=== PATIENT | female | born 1985 | race Caucasian/White ===

== ENCOUNTER → 2020-08-13 | Outpatient (CLI) | payer BC | END | disposition home or self-care (01) | LOC: LABWHC1 13:24 | PROVIDERS: ATTEND Nurse Practitioner Family | DX: Z03.818 Encounter for observation for suspected exposure to other biological agents ruled out (principal) | CPT/HCPCS: U0003; C9803 ==

== ENCOUNTER 2020-08-14 11:30 | Emergency (ER) | payer BC ==
[2020-08-14 11:38] VITALS: RESP 16; TEMP 97.1
[2020-08-14] MEDS ORDERED: PANTOPRAZOLE 40 MG/10 ML VIAL IVP STA (11:42)
[2020-08-14] MEDS ORDERED: ONDANSETRON 4 MG/2 ML VIAL IVP STA (11:42)
[2020-08-14] MEDS ORDERED: SODIUM CHLORIDE 0.9% 1,000 ML IV STA (11:42)
--- NOTE | 2020-08-14 11:59 | ED ---
Abdominal Pain HPI - General Chief Complaint: Abdominal Pain Stated Complaint: PAIN IN ABD Time Seen by Provider: 08/14/20 11:42 Source: patient Mode of arrival: ambulatory Limitations: no limitations - History of Present Illness Initial Comments: Patient is a 35-year-old female presenting to the emergency department with chief complaint of abdominal pain. Patient reports the pain started early this morning and woke her up out of her sleep. Patient reports the pain is in the right flank region and radiating across to the groin. Patient denies a history of kidney stones. She denies any urinary or vaginal complaints. Denies any alleviating aggravated factors. Denies taking medication to alleviate the symptoms. Denies hematuria, hematochezia or melena. She also complains of right upper quadrant abdominal pain that has been ongoing for 5-6 years but her primary care physician is not done anything about it. She does report. Radial pain and going on for several years as well. No nausea vomiting diarrhea. - Related Data Home Medications Medication Instructions Recorded Confirmed Escitalopram [Lexapro] 20 mg PO HS 08/14/20 08/14/20 Allergies Allergy/AdvReac Type Severity Reaction Status Date / Time No Known Allergies Allergy Verified 08/14/20 12:07 Review of Systems ROS Statement: Those systems with pertinent positive or pertinent negative responses have been documented in the HPI. ROS Other: All systems not noted in ROS Statement are negative. 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 History of Any Multi-Drug Resistant Organisms: None Reported Past Surgical History: Ablation Additional Past Surgical History / Comment(s): Heart ablation Past Psychological History: No Psychological Hx Reported Smoking Status: Current every day smoker Past Alcohol Use History: None Reported Past Drug Use History: None Reported General Exam Limitations: no limitations General appearance: alert, in no apparent distress, obese Head exam: Present: atraumatic, normocephalic, normal inspection Eye exam: Present: normal appearance, PERRL, EOMI Pupils: Present: normal accommodation ENT exam: Present: normal exam, normal oropharynx, mucous membranes moist, TM's normal bilaterally, normal external ear exam Neck exam: Present: normal inspection, full ROM. Absent: tenderness Respiratory exam: Present: normal lung sounds bilaterally. Absent: respiratory distress, wheezes Cardiovascular Exam: Present: regular rate, normal rhythm, normal heart sounds GI/Abdominal exam: Present: soft, tenderness (Right upper quadrant, right flank pain. Positive Galvan sign). Absent: distended, guarding, rebound, rigid Extremities exam: Present: normal inspection, full ROM, normal capillary refill. Absent: tenderness Back exam: Present: normal inspection, full ROM, CVA tenderness (R). Absent: tenderness, CVA tenderness (L) Neurological exam: Present: alert, oriented X3, normal gait Psychiatric exam: Present: normal affect, normal mood Skin exam: Present: warm, dry, intact, normal color Course Vital Signs 08/14/20 08/14/20 11:36 13:15 Temperature 97.1 F L Pulse Rate 61 62 Respiratory 16 16 Rate Blood Pressure 131/89 115/69 O2 Sat by Pulse 100 99 Oximetry Medical Decision Making - Medical Decision Making Patient is a 35-year-old male presenting to emergency Department with chief complaint of abdominal pain. The patient's biggest complaint is right flank pain that started this morning, sudden onset and sharp in nature. It is also colicky. Physical examination reveals right CVA tenderness. She also has right upper quadrant abdominal pain. CBC reveals mild leukocytosis. CMP is in a Ramon well. UA shows small amounts of blood and red blood cells. I suspect the patient has already passed a renal stone. Right upper quadrant ultrasound was obtained revealing gallstones without evidence of cholecystitis. No signs of hydronephrosis. I suspect this is a chronic issue for the patient. I will give her contact information for a general surgeon. Patient was advised about eating a low-fat diet. Strict return parameters were thoroughly discussed with patient was standing agreeable. Case discussed with physician. - Lab Data Result diagrams: 08/14/20 11:51 08/14/20 11:51 Lab Results 08/14/20 08/14/20 08/14/20 Range/Units 11:51 11:51 11:51 WBC 13.5 H (3.8-10.6) k/uL RBC 4.45 (3.80-5.40) m/uL Hgb 14.5 (11.4-16.0) gm/dL Hct 44.1 (34.0-46.0) % MCV 99.1 (80.0-100.0) fL MCH 32.5 (25.0-35.0) pg MCHC 32.8 (31.0-37.0) g/dL RDW 13.1 (11.5-15.5) % Plt Count 370 (150-450) k/uL Neutrophils % 84 % Lymphocytes % 12 % Monocytes % 2 % Eosinophils % 2 % Basophils % 0 % Neutrophils # 11.3 H (1.3-7.7) k/uL Lymphocytes # 1.6 (1.0-4.8) k/uL Monocytes # 0.3 (0-1.0) k/uL Eosinophils # 0.3 (0-0.7) k/uL Basophils # 0.1 (0-0.2) k/uL Sodium (137-145) mmol/L Potassium (3.5-5.1) mmol/L Chloride (98-107) mmol/L Carbon Dioxide (22-30) mmol/L Anion Gap mmol/L BUN (7-17) mg/dL Creatinine (0.52-1.04) mg/dL Est GFR (CKD-EPI)AfAm (>60 ml/min/1.73 sqM) Est GFR (CKD-EPI)NonAf (>60 ml/min/1.73 sqM) Glucose (74-99) mg/dL Calcium (8.4-10.2) mg/dL Total Bilirubin (0.2-1.3) mg/dL AST (14-36) U/L ALT (4-34) U/L Alkaline Phosphatase (38-126) U/L Total Protein (6.3-8.2) g/dL Albumin (3.5-5.0) g/dL Lipase (23-300) U/L Urine Color Yellow Urine Appearance Clear (Clear) Urine pH 8.0 (5.0-8.0) Ur Specific Crucible 1.026 (1.001-1.035) Urine Protein Trace H (Negative) Urine Glucose (UA) Negative (Negative) Urine Ketones Negative (Negative) Urine Blood Small H (Negative) Urine Nitrite Negative (Negative) Urine Bilirubin Negative (Negative) Urine Urobilinogen <2.0 (<2.0) mg/dL Ur Leukocyte Esterase Negative (Negative) Urine RBC 16 H (0-5) /hpf Urine WBC 1 (0-5) /hpf Urine Mucus Rare H (None) /hpf Urine HCG, Qual Not Detected (Not Detectd) 08/14/20 Range/Units 11:51 WBC (3.8-10.6) k/uL RBC (3.80-5.40) m/uL Hgb (11.4-16.0) gm/dL Hct (34.0-46.0) % MCV (80.0-100.0) fL MCH (25.0-35.0) pg MCHC (31.0-37.0) g/dL RDW (11.5-15.5) % Plt Count (150-450) k/uL Neutrophils % % Lymphocytes % % Monocytes % % Eosinophils % % Basophils % % Neutrophils # (1.3-7.7) k/uL Lymphocytes # (1.0-4.8) k/uL Monocytes # (0-1.0) k/uL Eosinophils # (0-0.7) k/uL Basophils # (0-0.2) k/uL Sodium 136 L (137-145) mmol/L Potassium 5.3 H (3.5-5.1) mmol/L Chloride 106 (98-107) mmol/L Carbon Dioxide 24 (22-30) mmol/L Anion Gap 6 mmol/L BUN 17 (7-17) mg/dL Creatinine 0.53 (0.52-1.04) mg/dL Est GFR (CKD-EPI)AfAm >90 (>60 ml/min/1.73 sqM) Est GFR (CKD-EPI)NonAf >90 (>60 ml/min/1.73 sqM) Glucose 124 H (74-99) mg/dL Calcium 9.3 (8.4-10.2) mg/dL Total Bilirubin 0.8 (0.2-1.3) mg/dL AST 29 (14-36) U/L ALT 15 (4-34) U/L Alkaline Phosphatase 52 (38-126) U/L Total Protein 7.8 (6.3-8.2) g/dL Albumin 4.4 (3.5-5.0) g/dL Lipase 52 (23-300) U/L Urine Color Urine Appearance (Clear) Urine pH (5.0-8.0) Ur Specific Crucible (1.001-1.035) Urine Protein (Negative) Urine Glucose (UA) (Negative) Urine Ketones (Negative) Urine Blood (Negative) Urine Nitrite (Negative) Urine Bilirubin (Negative) Urine Urobilinogen (<2.0) mg/dL Ur Leukocyte Esterase (Negative) Urine RBC (0-5) /hpf Urine WBC (0-5) /hpf Urine Mucus (None) /hpf Urine HCG, Qual (Not Detectd) Disposition Clinical Impression: Renal stone, Right flank pain, Gallstone Disposition: HOME SELF-CARE Condition: Stable Instructions (If sedation given, give patient instructions): Kidney Stones (ED), Cholecystitis (ED), Low Fat Diet (ED) Additional Instructions: Please follow up with a general surgeon. It a low-fat diet. Return to emergency department if symptoms worsen. Is patient prescribed a controlled substance at d/c from ED?: No Referrals: Mary León III, MD [Primary Care Provider] - 1-2 days Merrick Ortiz MD [Medical Doctor] - 1-2 days Time of Disposition: 14:03
[2020-08-14 12:01] LABS: Appearance,Urine Clear (Clear); Basophils # (A) 0.1 k/uL (0-0.2); Basophils % (A) 0 %; Bilirubin,Urine Negative (Negative); Blood,Urine Small (Negative); Color,Urine Yellow; Eosinophils # (A) 0.3 k/uL (0-0.7); Eosinophils % (A) 2 %; Glucose,Urine (UA) Negative (Negative); HCT 44.1 % (34.0-46.0); HGB 14.5 gm/dL (11.4-16.0); Ketones,Urine Negative (Negative); Leukocyte Esterase,Urine Negative (Negative); Lymphocytes # (A) 1.6 k/uL (1.0-4.8); Lymphocytes % (A) 12 %; MCH 32.5 pg (25.0-35.0); MCHC 32.8 g/dL (31.0-37.0); MCV 99.1 fL (80.0-100.0); Mean Platelet Volume 7.2; Monocytes # (A) 0.3 k/uL (0-1.0); Monocytes % (A) 2 %; Mucus,Urine Rare /hpf; Neutrophils # (A) 11.3 k/uL (1.3-7.7); Neutrophils % (A) 84 %; Nitrite,Urine Negative (Negative); Platelet Count 370 k/uL (150-450); Protein,Urine Trace (Negative); RBC 4.45 m/uL (3.80-5.40); RBC,Urine 16 /hpf (0-5); RDW 13.1 % (11.5-15.5); Specific Gravity,Urine 1.026 (1.001-1.035); Urobilinogen,Urine <2.0 mg/dL (<2.0); WBC 13.5 k/uL (3.8-10.6); WBC,Urine 1 /hpf (0-5)
[2020-08-14] MEDS ORDERED: KETOROLAC 15 MG/ML 1 ML VIAL IVP STA (12:05)
[2020-08-14] MEDS ORDERED: KETOROLAC 15 MG/ML 1 ML VIAL ONE (12:06)
[2020-08-14 12:10] LABS: ALT 15 U/L (4-34); AST 29 U/L (14-36); African American GFR (CKD) >90 (>60 ml/min/1.73 sqM); Albumin 4.4 g/dL (3.5-5.0); Alkaline Phosphatase 52 U/L (38-126); Anion Gap 6 mmol/L; Blood Urea Nitrogen 17 mg/dL (7-17); Calcium 9.3 mg/dL (8.4-10.2); Carbon Dioxide 24 mmol/L (22-30); Chloride 106 mmol/L (98-107); Glucose 124 mg/dL (74-99); Non-African American GFR(CKD) >90 (>60 ml/min/1.73 sqM); Sodium 136 mmol/L (137-145); Total Bilirubin 0.8 mg/dL (0.2-1.3); Total Protein 7.8 g/dL (6.3-8.2)
[2020-08-14 12:20] LABS: Potassium 5.3 mmol/L (3.5-5.1)
[2020-08-14 13:16] VITALS: BP 115/69; PULSE 62
--- NOTE | 2020-08-14 13:39 | US ---
EXAMINATION TYPE: US abdomen limited DATE OF EXAM: 08/14/2020 COMPARISON: [facility] 2012 CLINICAL HISTORY: ruq pain. Right lateral abd pain radiating downward, noted after meals, nausea toda y EXAM MEASUREMENTS: Liver Length: 17.5 cm Gallbladder Wall: 0.3 cm CBD: 0.4 cm Right Kidney: 11.0 x 5.5 x 4.5 cm Pancreas: Homogeneously hyperechoic Liver: attenuated posteriorly suggests fatty liver Gallbladder: multiple shadowing stones seen with limited mobility of stones Evidence for sonographic Galvan's sign: tender here per patient CBD: wnl Right Kidney: No hydronephrosis or masses seen Pancreas shows no worrisome mass or ductal dilatation images saved. IVC seen hepatic dome. Visualized liver is heterogeneous without worrisome mass on images saved. Evaluation for masses suboptimal due to the heterogeneity. Common bile duct measures within normal limits. Right kidney shows no hydroneph rosis. Gallbladder seen with shadowing mobile gallstones. No pericholecystic fluid or abnormal gallbl adder wall thickening. IMPRESSION: Gallstones without convincing secondary ultrasound evidence for acute cholecystitis howev er in patient with right upper quadrant pain and sonographic positive Galvan sign it cannot be entire ly excluded. Consider HIDA scan follow-up.
== END 2020-08-14 14:15 | disposition home or self-care (01) ==
LOC: EC 11:30
DX: K80.20 Calculus of gallbladder without cholecystitis without obstruction (principal); N20.0 Calculus of kidney; F17.200 Nicotine dependence, unspecified, uncomplicated
CPT/HCPCS: 36415; 80053; 83690; 85025; 81001; 81025; 76705; 99284; 96374; 96375 ×2; 96361 ×2; J2405; J1885; C9113

== ENCOUNTER → 2020-08-16 | Outpatient (CLI) | payer BC ==
--- NOTE | 2020-08-16 19:29 | CT ---
EXAMINATION TYPE: CT abdomen pelvis wo/w con DATE OF EXAM: 08/16/2020 COMPARISON: 03/26/2013 HISTORY: Right side abdominal pain and hematuria CT DLP: 3528 mGycm Automated exposure control for dose reduction was used. TECHNIQUE: Helical acquisition of images was performed from the lung bases through the pelvis. CONTRAST: Performed with Oral Contrast and without and with IV Contrast, patient injected with 100 mL of Isovue 300. FINDINGS: LUNG BASES: No significant abnormality is appreciated. LIVER/GB/PANCREAS: The gallbladder is prominently distended etiology unclear. There is no pericholecy stic edematous change within the anterior pararenal space to suggest CT diagnosis of cholecystitis. The pancreatic parenchyma is diffusely low in attenuation and, therefore, clinical exclusion of pancr eatitis is requested. There is no intrahepatic biliary tree dilation, and there is no definite extra hepatic biliary tree d ilation. SPLEEN: No significant abnormality is seen. ADRENALS: No significant abnormality is seen. KIDNEYS AND URETERS AND BLADDER: No hydronephrosis or hydroureter. No renal or ureteral calcification s. No urinary bladder calcifications. No CT correlate for hematuria. FREE AIR: No free air is visualized. RETROPERITONEAL ADENOPATHY: None visualized REPRODUCTIVE ORGANS: No significant abnormality is seen PELVIC ADENOPATHY: None visualized. OSSEOUS STRUCTURES: No significant abnormality is seen. BOWEL: No significant abnormality is seen. OTHER: No acute vascular findings. IMPRESSION: 1. Gallbladder enlargement; clinical exclusion of cholecystitis requested. 2. Edematous pancreatic parenchyma; clinical exclusion of pancreatitis requested.
== END | disposition home or self-care (01) ==
LOC: RADCTMAIN 16:59
PROVIDERS: ATTEND Nurse Practitioner Family
DX: K82.8 Other specified diseases of gallbladder (principal); K86.89 Other specified diseases of pancreas
CPT/HCPCS: 74178; Q9967

== ENCOUNTER → 2020-09-05 | Outpatient (CLI) | payer BC ==
--- NOTE | 2020-09-05 19:50 | NM ---
EXAMINATION TYPE: NM hepatobiliary wo EF DATE OF EXAM: 09/05/2020 COMPARISON: NONE HISTORY: Cholecystectomy. Possible bile leak. TECHNIQUE: After the intravenous administration of 5.5 mCi Tc 99m Mebrofenin hepatobiliary scintigrap hy is performed. Immediate images post injection. FINDINGS: There is prompt uptake of the tracer by the liver that has normal size and contour. There is tracer a ccumulation at the inferior right lobe of the liver consistent with a mild leak. This does not appear to be within the small bowel. There is also some small bowel activity in the mid abdomen. IMPRESSION: Evidence of a bile leak. Most of the tracer appears to be accumulating outside of the bow el.
== END | disposition home or self-care (01) ==
LOC: RADNMMAIN 18:15
PROVIDERS: ATTEND Student in an Organized Health Care Education/Training Program
DX: K91.89 Other postprocedural complications and disorders of digestive system (principal)
CPT/HCPCS: 78226; A9537

== ENCOUNTER 2021-03-25 09:59 | Emergency (ER) | payer BC ==
[2021-03-25 10:04] VITALS: BP 129/77; PULSE 77; RESP 16; TEMP 97.6
[2021-03-25] MEDS ORDERED: KETOROLAC 15 MG/ML 1 ML VIAL IM STA (10:31)
--- NOTE | 2021-03-25 10:54 | ED ---
General Adult HPI - General Chief complaint: Extremity Problem,Nontraumatic Stated complaint: numbness in leg Time Seen by Provider: 03/25/21 10:09 Source: patient, RN notes reviewed Mode of arrival: ambulatory Limitations: no limitations - History of Present Illness Initial comments: 36-year-old female presents to the emergency room for left foot numbness. Patient reports her foot has been tingling for the past 2 days on and off. Patient denies any weakness in the foot. States she does station when touching the foot. Patient denies any headaches, difficulty speaking. Patient reports she has pain in the left lower back and buttock as well. States this has been ongoing for about a week. Patient states his flares up after she works.Patient has no other complaints at this time including shortness of breath, chest pain, abdominal pain, nausea or vomiting, headache, or visual changes. - Related Data Home Medications Medication Instructions Recorded Confirmed Escitalopram [Lexapro] 20 mg PO DAILY 08/14/20 03/25/21 busPIRone HCL [Buspar] 7.5 mg PO BID 03/25/21 03/25/21 Previous Rx's Medication Instructions Recorded predniSONE 50 mg PO DAILY #5 tablet 03/25/21 Allergies Allergy/AdvReac Type Severity Reaction Status Date / Time No Known Allergies Allergy Verified 03/25/21 10:25 Review of Systems ROS Statement: Those systems with pertinent positive or pertinent negative responses have been documented in the HPI. ROS Other: All systems not noted in ROS Statement are negative. 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 Absent: scleral icterus, conjunctival injection, periorbital swelling ENT exam: Present: normal exam Neck exam: Present: normal inspection, full ROM. Absent: tenderness, meningismus, lymphadenopathy Respiratory exam: Present: normal lung sounds bilaterally. Absent: respiratory distress, wheezes Cardiovascular Exam: Present: regular rate, normal rhythm, normal heart sounds. Absent: systolic murmur, diastolic murmur, rubs, gallop, clicks GI/Abdominal exam: Present: soft, normal bowel sounds. Absent: distended, tenderness, guarding, rebound, rigid Extremities exam: Present: full ROM (Full range of motion of the left leg), tenderness (Tenderness to the lateral hip and thigh area.), normal capillary refill (Capillary refill less than 2 seconds, DP and PT pulses 2+.), other (Positive straight leg raise test.). Absent: pedal edema, joint swelling, calf tenderness Course Vital Signs 03/25/21 10:01 Temperature 97.6 F Pulse Rate 77 Respiratory 16 Rate Blood Pressure 129/77 O2 Sat by Pulse 98 Oximetry Medical Decision Making - Medical Decision Making Vitals are stable. Patient is complaining of left foot paresthesias. She does have tingling. Full sensation however on palpation. No weakness in the left leg. Neurovascular status intact. Patient does have a positive straight leg raise test and has pain in the lateral hip area. No bladder or bowel changes, fever, saddle anesthesia. Symptoms are consistent with a lumbar radiculopathy. HCG is negative. X-ray of the lumbar spine shows some facet arthropathy however no significant change. Patient will be treated with steroids. Recommen d that she follow up with orthopedics. She will return for any worsening symptoms. - Lab Data Lab Results 03/25/21 Range/Units 10:35 Urine HCG, Qual Not Detected (Not Detectd) Disposition Clinical Impression: Paresthesia Disposition: HOME SELF-CARE Condition: Good Instructions (If sedation given, give patient instructions): Lumbar Radiculopathy (ED), Paresthesia (ED) Additional Instructions: Take steroid as directed. Follow-up with orthopedics. If you have worsening symptoms return to the emergency room. Prescriptions: predniSONE 50 mg PO DAILY #5 tablet Is patient prescribed a controlled substance at d/c from ED?: No Referrals: Mary León III, MD [Primary Care Provider] - 1-2 days Robert Kearney DO [Doctor of Osteopathic Medicine] - 1-2 days Time of Disposition: 11:33
--- NOTE | 2021-03-25 11:14 | XR ---
EXAMINATION TYPE: XR lumbar spine 2 or 3V DATE OF EXAM: 03/25/2021 CLINICAL HISTORY: Left leg numbness for 2 days. Low back pain. TECHNIQUE: Frontal and lateral images of the lumbar spine are obtained. COMPARISON: CT abdomen and pelvis August 16, 2020 FINDINGS: There are 5 lumbar type vertebral bodies identified. The lumbar spine shows satisfactory alignment without evidence of acute fracture or dislocation. Vertebral body heights and disk space he ights remain within normal limits. Some facet arthropathy lower lumbar spine redemonstrated. Cholecy stectomy clips noted in the interval from recent CT. IMPRESSION: As above. No significant change from recent CT
== END 2021-03-25 12:12 | disposition home or self-care (01) ==
LOC: EC 09:59
DX: R20.2 Paresthesia of skin (principal); F17.200 Nicotine dependence, unspecified, uncomplicated; F32.9 Major depressive disorder, single episode, unspecified; F41.9 Anxiety disorder, unspecified
CPT/HCPCS: 81025; 72100; 99283; 96372; J1885; 93005

== ENCOUNTER → 2023-07-08 | Outpatient (CLI) | payer OTHER ==
[2023-07-08 20:54] LABS: Basophils # (A) 0.05 X 10*3/uL (0.00-0.10); Basophils % (A) 0.4 %; Eosinophils # (A) 0.19 X 10*3/uL (0.04-0.35); Eosinophils % (A) 1.7 %; HCT 39.5 % (37.2-46.3); HGB 13.1 d/dL (12.0-15.0); Lymphocytes # (A) 2.17 X 10*3/uL (0.90-5.00); Lymphocytes % (A) 19.4 %; MCH 31.6 pg (27.0-32.0); MCHC 33.2 d/dL (32.0-37.0); MCV 95.2 FL (80.0-97.0); Mean Platelet Volume 10.7 FL (9.5-12.2); Monocytes # (A) 0.78 X 10*3/uL (0.20-1.00); NRBC Per 100 WBC 0 X 10*3/uL (0.00-0.01); Neutrophils # (A) 7.95 X 10*3/uL (1.80-7.70); Neutrophils % (A) 71.1 %; Platelet Count 377 X 10*3/uL (140-440); RBC 4.15 X 10*6/uL (4.10-5.20); RDW 13.2 % (11.5-14.5); WBC 11.18 X 10*3/uL (4.50-10.00)
[2023-07-09 02:32] LABS: ALT 14 U/L (8-44); AST 18 U/L (13-35); Albumin 4.4 d/dL (3.8-4.9); Albumin/Globulin Ratio 1.83 Ratio (1.60-3.17); Alkaline Phosphatase 65 U/L (41-126); Blood Urea Nitrogen 9.8 mg/dL (9.0-27.0); Calcium 9.7 mg/dL (8.7-10.3); Carbon Dioxide 21.8 mmol/L (21.6-31.8); Chloride 102 mmol/L (96-109); Chol/HDL Ratio 3.38 Ratio; Globulin 2.4 d/dL (1.6-3.3); Glucose 74 mg/dL (70-110); LDL Cholesterol,Calculated 118.2 mg/dL (0.0-131.0); Potassium 4.4 mmol/L (3.5-5.5); Sodium 137 mmol/L (135-145); Total Bilirubin 0.4 mg/dL (0.3-1.2); Total Protein 6.8 d/dL (6.2-8.2); VLDL Calculation 16.28 mg/dL (5.00-40.00)
== END | disposition home or self-care (01) ==
LOC: LABWHC1 14:58
PROVIDERS: ATTEND Nurse Practitioner Family
DX: Z00.00 Encounter for general adult medical examination without abnormal findings (principal); E66.9 Obesity, unspecified
CPT/HCPCS: 36415; 80053; 80061; 82306; 82607; 82746; 83036; 84443; 85025

== ENCOUNTER → 2025-05-15 | Outpatient (CLI) | payer BC, OTHER ==
--- NOTE | 2025-05-16 14:38 | MM ---
Reason for Exam: Screening (asymptomatic). Baseline mammogram. Patient History: Menarche at age 12. Patient has no children. Maternal grandmother had breast cancer, age 60. Last menstrual period: 04/19/2025 Risk Values: Cheri 5 year model risk: 0.6%. NCI Lifetime model risk: 11.1%. Prior Study Comparison: Patient's first Mammogram. Tissue Density: There are scattered areas of fibroglandular density. Findings: Analyzed By CAD. Benign-appearing round calcifications medial inferior aspect both breasts are noted. There is no suspicious group of microcalcifications or suspicious mass in either breast. Overall Assessment: Benign, BI-RAD 2 Management: Screening Mammogram of both breasts in 1 year. . Patient should continue monthly self-breast exams. A clinical breast exam by your physician is recommended on an annual basis. This exam should not preclude additional follow-up of suspicious palpable abnormalities. Note on Cheri scores and lifetime risk: 1. A Cheri score greater than 3% is considered moderate risk. If this is the case, consider specialist referral to assess eligibility for a risk reducing agent. 2. If overall lifetime risk for the development of breast cancer is 20% or higher, the patient may qualify for future screening with alternating mammogram and breast MRI. [facility], , 05/15/2025 7:44 AM. Electronically signed and approved by: Sedrick Fleming M.D.
== END | disposition home or self-care (01) ==
LOC: RADMAMWWP 06:51
PROVIDERS: ATTEND Family Medicine
DX: Z12.31 Encounter for screening mammogram for malignant neoplasm of breast (principal); R92.323 Mammographic fibroglandular density, bilateral breasts; R92.1 Mammographic calcification found on diagnostic imaging of breast; Z80.3 Family history of malignant neoplasm of breast
CPT/HCPCS: 77063; 77067